=== PATIENT | male | born 1990 | race African-American/Black ===

== ENCOUNTER → 2018-11-14 | Outpatient (CLI) | payer BC ==
[2018-11-14 16:53] LABS: FREE T3 4.31 pg/mL (2.77-5.27)
[2018-11-14 17:07] LABS: THYROID STIMULATING HORMONE 0.92 uIU/mL (0.47-4.68)
== END ==
LOC: OD 14:57
PROVIDERS: ATTEND Internal Medicine
DX: E05.90 Thyrotoxicosis, unspecified without thyrotoxic crisis or storm (principal)
CPT/HCPCS: 36415; 84436; 84443; 84481

== ENCOUNTER → 2018-11-19 | Outpatient (CLI) | payer BC ==
--- NOTE | 2018-11-19 18:53 | RADIOLOGY REPORT (SQ) ---
EXAM DESCRIPTION: U/S THYROID/SFT TISS HD NECK COMPLETED DATE/TIME: 11/19/2018 5:59 pm REASON FOR STUDY: E04.9 NONTOXIC GOITER, UNSPECIFIED E04.9 NONTOXIC GOITER, UNSPECIFIED COMPARISON: None. TECHNIQUE: Dynamic and static ruelas-scale images acquired of the thyroid gland. Selected additional c olor/power Doppler images recorded. All images stored to PACS. LIMITATIONS: None. FINDINGS: RIGHT LOBE: Prominent, 5.3 cm. Homogeneous echotexture. No cystic or solid masses. LEFT LOBE: Normal size, 4.8 cm. Homogeneous echotexture. No cystic or solid masses. ISTHMUS: Normal size, 3 mm. Homogeneous echotexture. No cystic or solid masses. OTHER: No other significant finding. IMPRESSION: The right lobe is slightly elongated. The study is otherwise normal. TECHNICAL DOCUMENTATION: JOB ID: [id number] [employer]- All Rights Reserved Reading location - IP/workstation name: [email or web address]
== END ==
LOC: RAD 17:23
PROVIDERS: ATTEND Internal Medicine
DX: E04.9 Nontoxic goiter, unspecified (principal)
CPT/HCPCS: 76536

== ENCOUNTER 2020-06-07 08:45 | Emergency (ER) | payer BC ==
[2020-06-07] MEDS ORDERED: KETOROLAC TROMETHAMINE INJ/PF 30 MG/1 ML SDV IV ONE (09:34)
--- NOTE | 2020-06-07 10:00 | ER Document Report ---
ED Neck/Back Problem - General Chief Complaint: Back Pain Stated Complaint: BACK PAIN Time Seen by Provider: 06/07/20 09:27 Notes: CHIEF COMPLAINT: Left thoracic pain HPI: 29-year-old male presenting with for 5 days of left thoracic pain worse with deep breathing. Patient does have history of sleep apnea is on CPAP. States he did have a slight cough and low-grade fever several days ago. Patient states that he went to [facility] yesterday and had a chest x-ray done and was placed on a muscle relaxer told he had a thoracic pain issue. Patient feels no better today so came in for evaluation. He has not had a high fever. Positive ROS: See HPI - all other systems were reviewed and are otherwise negative Constitutional: no fever Eyes: no drainage, no blurred vision ENT: no runny nose, no sore throat Cardiovascular: no chest pain Resp: no SOB, positive cough GI: no vomiting, no diarrhea, no abdominal pain : no dysuria Integumentary: no rash Allergy: no hives Musculoskeletal: no extremity pain or swelling Neurological: no numbness/tingling, no weakness MEDICATIONS: I agree with the patient medications as charted by the RN. ALLERGIES: I agree with the allergies as charted by the RN. PAST MEDICAL HISTORY/PAST SURGICAL HISTORY: Reviewed and agree as charted by RN. SOCIAL HISTORY: Reviewed and agree as charted by RN. FAMILY HISTORY: No significant familial comorbid conditions directly related to patient complaint EXAM: Reviewed vital signs as charted by RN. CONSTITUTIONAL: Alert and oriented and responds appropriately to questions. Well-appearing; well-nourished HEAD: Normocephalic; atraumatic EYES: PERRL; Conjunctivae clear, sclerae non-icteric ENT: normal nose; no rhinorrhea; moist mucous membranes; pharynx without lesions noted, no uvula edema or deviation, no tonsillar hypertrophy, phonation normal NECK: Supple without meningismus; non-tender; no cervical lymphadenopathy, no masses CARD: RRR; no murmurs, no clicks, no rubs, no gallops; symmetric distal pulses RESP: Normal chest excursion without splinting or tachypnea; breath sounds clear and equal bilaterally; no wheezes, no rhonchi, no rales, pulse oximetry 98% on room air not hypoxic. There is tenderness in the left thoracic scapular region on palpation ABD/GI: Normal bowel sounds; non-distended; soft, non-tender, no rebound, no guarding; no palpable organomegaly or masses. BACK: The back appears normal and is non-tender to palpation, there is no CVA tenderness EXT: Normal ROM in all joints; non-tender to palpation; no cyanosis, no effusions, no edema SKIN: Normal color for age and race; warm; dry; good turgor; no acute lesions noted NEURO: Moves all extremities equally; Motor and sensory function intact PSYCH: The patient's mood and manner are appropriate. Grooming and personal hygiene are appropriate. MDM: 29-year-old male presenting with pleuritic pain in the left thoracic region over the last 3 or 4 days. He is PERC negative. Patient was seen yesterday at another outside ER. Will obtain a chest x-ray and a D-dimer today. I believe he is low risk for PE. TRAVEL OUTSIDE OF THE [place] IN LAST 30 DAYS: No - Related Data Allergies/Adverse Reactions: No Known Allergies Allergy (Unverified 06/07/20 09:52) Past Medical History - Social History Smoking Status: Never Smoker Frequency of alcohol use: None Drug Abuse: None Family History: Reviewed & Not Pertinent Patient has homicidal ideation: No Past Surgical History: Reports: Hx Cardiac Surgery - ablation Physical Exam - Vital signs Vitals: Temp Pulse Resp BP Pulse Ox 98.6 F 79 16 126/77 H 97 06/07/20 08:51 06/07/20 08:51 06/07/20 08:51 06/07/20 08:51 06/07/20 08:51 Course - Re-evaluation Re-evalutation: 06/07/20 11:48 Patient's D-dimer is negative he is low risk for PE this is likely pleurisy or thoracic muscular pain. He is on Robaxin and Toradol already states the Robaxin is not helping. We will change him over to Flexeril. - Vital Signs Vital signs: Temp Pulse Resp BP Pulse Ox 98.6 F 79 16 126/77 H 97 06/07/20 09:30 06/07/20 08:51 06/07/20 08:51 06/07/20 08:51 06/07/20 08:51 - Laboratory Result Diagrams: 06/07/20 10:15 Laboratory results interpreted by me: 06/07/20 10:15 Anion Gap 2 L Discharge - Discharge Clinical Impression: Pleurisy Condition: Stable Disposition: HOME, SELF-CARE Additional Instructions: Continue with the anti-inflammatories, change the Robaxin for Flexeril. Follow- up with a primary care provider for reevaluation of symptoms return if condition worsens Prescriptions: Cyclobenzaprine HCl [Flexeril 10 mg Tablet] 10 mg PO TIDP PRN #15 tab PRN Reason:
--- NOTE | 2020-06-07 10:26 | RADIOLOGY REPORT (SQ) ---
EXAM DESCRIPTION: CHEST 2 VIEWS IMAGES COMPLETED DATE/TIME: 06/07/2020 10:04 am REASON FOR STUDY: pleurisy COMPARISON: None. TECHNIQUE: Frontal and lateral radiographic views of the chest acquired. NUMBER OF VIEWS: Two view. LIMITATIONS: None. FINDINGS: LUNGS AND PLEURA: No opacities, masses or pneumothorax. No pleural effusion. MEDIASTINUM AND HILAR STRUCTURES: No masses or contour abnormalities. HEART AND VASCULAR STRUCTURES: Heart normal size. No evidence for failure. BONES: No acute findings. HARDWARE: None in the chest. OTHER: No other significant finding. IMPRESSION: NO SIGNIFICANT RADIOGRAPHIC FINDING IN THE CHEST. TECHNICAL DOCUMENTATION: JOB ID: [id number] [employer]- All Rights Reserved Reading location - IP/workstation name: [email or web address]
[2020-06-07 11:16] LABS: BLOOD UREA NITROGEN 13 mg/dL (7-20); CALCIUM 9.3 mg/dL (8.4-10.2); CHLORIDE 105 mmol/L (98-107); GLUCOSE 92 mg/dL (75-110)
[2020-06-07 11:29] LABS: POTASSIUM 4.5 mmol/L (3.6-5.0)
[2020-06-07 11:30] LABS: ANION GAP 2 (5-19); CARBON DIOXIDE 30 mmol/L (22-30)
[2020-06-07 11:54] VITALS: BP 127/69
== END 2020-06-07 12:15 | disposition home or self-care (01) ==
LOC: ER 08:45
DX: R09.1 Pleurisy (principal); M54.9 Dorsalgia, unspecified; R07.81 Pleurodynia; M54.6 Pain in thoracic spine; R05 Cough; R50.9 Fever, unspecified
CPT/HCPCS: 99284; 96374; 36415; 80048; 85379; 71046; J1885